=== PATIENT | male | born 1990 | race Caucasian/White ===

== ENCOUNTER 2017-10-22 13:37 | Inpatient (IN) | payer MEDICAID, OTHER ==
[~2017-10-22] VITALS: Ht 175.3 cm; Wt 72.3 kg
[~2017-10-22 13:37] MED LIST: LISI-660 PO; QUET300T18 PO
[2017-10-22 14:06] LABS: BASOPHILS % (AUTO) 0.3 % (0.0-2.0); EOSINOPHILS % (AUTO) 0.4 % (1.0-6.0); HEMATOCRIT 37.7 % (41-53); HEMOGLOBIN 12.3 g/dL (13.5-17.5); LYMPHOCYTES # (AUTO) 1.2 K/uL (1.0-4.8); LYMPHOCYTES % (AUTO) 22.9 % (22.0-44.0); MEAN CORPUSCULAR HEMOGLOBIN 23.5 pg (26.0-34.0); MEAN CORPUSCULAR HGB CONC 32.6 G/dL (31.0-37.0); MEAN CORPUSCULAR VOLUME 72 fL (80-100); MONOCYTES # (AUTO) 0.2 K/uL (0.1-1.0); MONOCYTES % (AUTO) 4.6 % (2.0-9.0); NEUTROPHILS # (AUTO) 3.8 K/uL (1.8-7.7); NEUTROPHILS % (AUTO) 71.8 % (40.0-70.0); PLATELET COUNT (AUTO) 193 K/uL (150-450); RED BLOOD CELL COUNT(AUTO) 5.23 MIL/uL (4.50-5.90); RED CELL DISTRIBUTION WIDTH 15.2 % (11.5-14.5); WHITE BLOOD COUNT (AUTO) 5.2 K/uL (4.5-11.0)
[2017-10-22 14:23] LABS: ANION GAP 12 mmol/L (8-16); CALCIUM, TOTAL 8.8 mg/dL (8.8-10.5); CARBON DIOXIDE 26 mmol/L (22-29); CHLORIDE 102 mmol/L (98-107); CREATININE 1.27 mg/dL (0.60-1.30); GLOMERULAR FILTR. RATE CALC > 60 mL/min (>60); POTASSIUM 3.5 mmol/L (3.5-5.1); SODIUM SERUM 140 mmol/L (136-145); UREA NITROGEN, BLOOD 12 mg/dL (7-18)
[2017-10-22 14:28] LABS: ALANINE AMINOTRANSFERASE 22 U/L (12-78); ALBUMIN 4.6 g/dL (3.4-5.0); ASPARTATE AMINOTRANSFERASE 24 U/L (15-37); BILIRUBIN,TOTAL 0.6 mg/dL (0.1-1.0); TOTAL PROTEIN, SERUM 8.1 g/dL (6.4-8.2)
[2017-10-22] MEDS ORDERED: PALI78DI IM (14:30)
[2017-10-22 14:34] LABS: RBC MORPHOLOGY COMMENT ABNORMAL RBC MORPH
[2017-10-22] MEDS ORDERED: LORazepam 2 MG TABLET PO ONE (15:00)
[2017-10-22] MEDS ORDERED: CYANOCOBALAMIN 1,000 MCG/ML VIAL IM ONE (15:45)
[2017-10-22] MEDS ORDERED: GuaiFENesin/D-METHORPHAN [SUGAR-FREE] 200-20MG/10 ML SYRUP UDCUP PO PRN (15:45)
[2017-10-22] MEDS ORDERED: PALIPERIDONE 3 MG ER TABLET PO PRN (15:45)
[2017-10-22] MEDS ORDERED: MAG HYDROX/AL HYDROX/SIMETH ES 30 ML SUSPENSION UDCUP PO PRN (15:45)
[2017-10-22] MEDS ORDERED: ACETAMINOPHEN 325 MG TABLET PO PRN (15:45)
[2017-10-22] MEDS ORDERED: MAGNESIUM HYDROXIDE SUSPENSION 30 ML UDCUP PO PRN (15:45)
[2017-10-22] MEDS ORDERED: PROMETHAZINE HCL 25 MG TABLET PO PRN (15:45)
[2017-10-22] MEDS ORDERED: TUBERCULIN, PURIFIED PROTEIN DERIVATIVE 5 TU/0.1 ML SYG ID ONE (15:45)
[2017-10-22] MEDS ORDERED: HydrOXYzine PAMOATE 50 MG CAPSULE PO PRN (15:45)
[2017-10-22] MEDS ORDERED: LOPERAMIDE HCL 2 MG CAPSULE PO PRN (15:45)
[2017-10-22 18:34] VITALS: BP 124/77
[2017-10-22] MEDS ORDERED: INFLUENZA VIRUS VACCINE QVS 2017-18 (3YR+)/PF 60 MCG/0.5 ML SYRINGE IM ONE (19:00)
[2017-10-22] MEDS ORDERED: PNEUMOCOCCAL VACCINE POLYVALENT 0.5 ML VIAL [PPSV23] IM ONE (19:00)
[2017-10-22] MEDS: THIAMINE HCL 100 MG TABLET PO SCH (19:12)
[2017-10-22] MEDS: ZOLPIDEM TARTRATE 10 MG TABLET PO PRN (20:36)
[2017-10-22] MEDS ORDERED: PALIPERIDONE 3 MG ER TABLET PO SCH (21:00)
[2017-10-23 02:13] VITALS: BP 121/71
[2017-10-23] MEDS: LORazepam 2 MG TABLET PO PRN ×2 (02:15→16:54)
[2017-10-23 07:54] LABS: BASOPHILS % (AUTO) 0.6 % (0.0-2.0); EOSINOPHILS % (AUTO) 0.9 % (1.0-6.0); HEMATOCRIT 37.1 % (41-53); HEMOGLOBIN 12.2 g/dL (13.5-17.5); LYMPHOCYTES # (AUTO) 0.9 K/uL (1.0-4.8); LYMPHOCYTES % (AUTO) 26.5 % (22.0-44.0); MEAN CORPUSCULAR HEMOGLOBIN 23.7 pg (26.0-34.0); MEAN CORPUSCULAR HGB CONC 32.8 G/dL (31.0-37.0); MEAN CORPUSCULAR VOLUME 72 fL (80-100); MONOCYTES # (AUTO) 0.3 K/uL (0.1-1.0); MONOCYTES % (AUTO) 8.7 % (2.0-9.0); NEUTROPHILS # (AUTO) 2.2 K/uL (1.8-7.7); NEUTROPHILS % (AUTO) 63.3 % (40.0-70.0); PLATELET COUNT (AUTO) 178 K/uL (150-450); RED BLOOD CELL COUNT(AUTO) 5.13 MIL/uL (4.50-5.90); RED CELL DISTRIBUTION WIDTH 15.4 % (11.5-14.5); WHITE BLOOD COUNT (AUTO) 3.6 K/uL (4.5-11.0)
[2017-10-23 08:31] VITALS: BP 131/81
[2017-10-23 08:58] LABS: ALANINE AMINOTRANSFERASE 20 U/L (12-78); ALBUMIN 4.2 g/dL (3.4-5.0); ANION GAP 8 mmol/L (8-16); ASPARTATE AMINOTRANSFERASE 20 U/L (15-37); BILIRUBIN,TOTAL 0.6 mg/dL (0.1-1.0); CALCIUM, TOTAL 8.8 mg/dL (8.8-10.5); CARBON DIOXIDE 29 mmol/L (22-29); CHLORIDE 104 mmol/L (98-107); CHOL/HDL RATIO 2.6 (4.2-7.3); CREATININE 1.07 mg/dL (0.60-1.30); GLOMERULAR FILTR. RATE CALC > 60 mL/min (>60); POTASSIUM 3.6 mmol/L (3.5-5.1); SODIUM SERUM 141 mmol/L (136-145); THYROID STIMULATING HORMONE 0.99 uIU/mL (0.36-3.74); TOTAL PROTEIN, SERUM 7.5 g/dL (6.4-8.2); UREA NITROGEN, BLOOD 11 mg/dL (7-18)
[2017-10-23] MEDS: LISINOPRIL 5 MG TABLET PO SCH (09:00)
[2017-10-23] MEDS: THIAMINE HCL 100 MG TABLET PO SCH ×2 (09:00→16:54)
[2017-10-23] MEDS: FLUoxetine HCL 20 MG CAPSULE PO SCH ×2 (09:00→10:31)
[2017-10-23] MEDS ORDERED: MULTIVITAMINS WITH MINERALS, THERAPEUTIC TABLET PO SCH (09:00)
[2017-10-23] MEDS: NICOTINE 21 MG/24 HOUR PATCH TD SCH ×2 (09:00→13:12)
[2017-10-23] MEDS: MULTIVITAMINS WITH MINERALS, THERAPEUTIC TABLET PO SCH (09:00)
[2017-10-23] MEDS: FOLIC ACID 1 MG TABLET PO SCH (09:00)
[2017-10-23 09:05] LABS: HEMOGLOBIN A1C 5.1 % (4.5-6.2)
[2017-10-23] MEDS ORDERED: MENTHOL/CAMPHOR/DIMETH/PHENOL 10 GM OINTMENT TP PRN (10:00)
[2017-10-23 10:02] LABS: RBC MORPHOLOGY COMMENT ABNORMAL RBC MORPH
[2017-10-23 16:03] VITALS: BP 125/75
[2017-10-23] MEDS ORDERED: ZIPR40CA2 PO (16:46)
[2017-10-23] MEDS: QUEtiapine FUMARATE 100 MG TABLET PO PRN ×2 (16:54→22:49)
[2017-10-23] MEDS: ZOLPIDEM TARTRATE 10 MG TABLET PO PRN (20:23)
[2017-10-24 06:33] VITALS: BP 127/67
[2017-10-24] MEDS ORDERED: ZIPRASIDONE HCL 40 MG CAPSULE PO SCH (07:00)
[2017-10-24 07:49] VITALS: BP 122/67
[2017-10-24] MEDS: LISINOPRIL 5 MG TABLET PO SCH (08:43)
[2017-10-24] MEDS: NICOTINE 21 MG/24 HOUR PATCH TD SCH (08:43)
[2017-10-24] MEDS: FOLIC ACID 1 MG TABLET PO SCH (08:44)
[2017-10-24] MEDS: THIAMINE HCL 100 MG TABLET PO SCH (08:44)
[2017-10-24] MEDS: MULTIVITAMINS WITH MINERALS, THERAPEUTIC TABLET PO SCH (08:44)
[2017-10-24 10:12] VITALS: BP 122/67
== END 2017-10-24 15:26 | disposition home or self-care (01) | DRG 750 ==
LOC: EMS 13:42 → B3A 17:13
PROVIDERS: ADMIT Psychiatry & Neurology Psychiatry; ATTEND Psychiatry & Neurology Psychiatry
DX: F25.0 Schizoaffective disorder, bipolar type (principal); F10.231 Alcohol dependence with withdrawal delirium; R45.851 Suicidal ideations; Z91.19 Patient's noncompliance with other medical treatment and regimen; Z59.0 Homelessness; D50.9 Iron deficiency anemia, unspecified; I10 Essential (primary) hypertension; F14.10 Cocaine abuse, uncomplicated; F41.9 Anxiety disorder, unspecified; F42.9 Obsessive-compulsive disorder, unspecified; G47.00 Insomnia, unspecified; F19.10 Other psychoactive substance abuse, uncomplicated; F12.10 Cannabis abuse, uncomplicated; F17.210 Nicotine dependence, cigarettes, uncomplicated; Z71.6 Tobacco abuse counseling
CPT/HCPCS: 83036; 84439; 84443; 86592; 99285; 99406; G0480; J3420